=== PATIENT | female | born 1985 | race Caucasian/White ===

== ENCOUNTER → 2016-12-07 | Outpatient (CLI) | payer OTHER ==
[2016-12-07 11:26] VITALS: BP 117/72
== END ==
LOC: MHUC 10:48
PROVIDERS: ATTEND Physician Assistant
DX: H61.23 Impacted cerumen, bilateral (principal)
CPT/HCPCS: 99213

== ENCOUNTER → 2017-02-20 | Outpatient (CLI) | payer OTHER ==
[~2017-02-20] MED LIST: IBUP-15 PO; NORE0.353 PO; PREN-93 PO
--- NOTE | 2017-02-20 12:13 | Diagnostic Imaging Report ---
EXAM: DIGITAL MAMMO BILAT DIAGNOSTIC The current study was also evaluated with a Computer Aided Detection (CAD) system. INDICATION: Palpable nodule in the right breast. COMPARISON: None. DENSITY: Heterogeneously dense, which may obscure small masses. FINDINGS: Bilateral silicone breast implants. There is a small well-circumscribed focal asymmetry in the upper outer right breast, approximately 6 cm from the nipple. No mass, calcification or architectural distortion suspicious for malignancy in the left breast. IMPRESSION: 1. Well-circumscribed focal asymmetry in the upper outer right breast corresponding to the palpable complaint which is of low suspicion. This will be further evaluated with ultrasound today. 2. No mammographic findings suspicious for malignancy in the left breast. RECOMMENDATION: Targeted ultrasound of the right breast which will also be performed today. BI-RADS category 0: Incomplete. ACR BI-RADS Category 0: Incomplete. (Needs additional imaging evaluation). Result letter will be mailed to the patient. Note: At least 10% of breast cancer is not imaged by mammography. Dictated by: Dictated on workstation # [id number]
--- NOTE | 2017-02-20 13:30 | Diagnostic Imaging Report ---
EXAM: US BREAST LIMITED, RIGHT The current study was also evaluated with a Computer Aided Detection (CAD) system. INDICATION: Palpable nodule in the right breast. COMPARISON: Diagnostic mammogram also performed today. FINDINGS: Targeted ultrasound of the upper outer right breast demonstrates heterogeneously dense breast parenchyma demonstrates no focal mass. There are a few prominent ducts in the upper outer right breast. Simple well-circumscribed cystic structure without color flow by color Doppler or septations in the right breast measuring approximately 4 x 3 x 4 mm. IMPRESSION: Benign appearing cyst and prominent ducts in heterogeneously dense breast tissue in the right breast. No ultrasound findings suspicious for malignancy. RECOMMENDATION: Routine annual screening mammography as indicated by age and risk factors. BI-RADS category 2: Benign. Dictated by: Dictated on workstation # [id number]
== END ==
LOC: RAD 08:54
PROVIDERS: ATTEND Family Medicine
DX: N64.4 Mastodynia (principal); Z98.82 Breast implant status; R92.2 Inconclusive mammogram
CPT/HCPCS: 76642; G0204